=== PATIENT | male | born 1985 | race Caucasian/White ===

== ENCOUNTER 2020-01-13 04:58 | Emergency (ER) | payer SELFPAY ==
[2020-01-13] MEDS ORDERED: NORMAL SALINE 1000 ML 1,000 ML IV ONE ×2 (05:08→08:11)
[2020-01-13] MEDS ORDERED: LORAZEPAM INJ 2 MG/1 ML VIAL IV ONE (05:08)
--- NOTE | 2020-01-13 05:18 | ER Document Report ---
ED Medical Screen (RME) - General Stated Complaint: POSSIBLE OVERDOSE Time Seen by Provider: 01/13/20 05:03 Notes: 34-year-old male with chief complaint of using methamphetamine for the first time tonight and having adverse side effects. He states he feels like his heart is racing, he feels shaky, and feels like he cannot hold still, he feels like he "is going to explode". He states he had some old Xanax and took it without any relief. He denies alcohol, recreational drugs otherwise. He denies IV drug abuse although does state that over 5 years ago he has used IV drugs in the past. He denies fever, vomiting, difficulty breathing, chest pain. He den ies any daily medications that are prescribed. He denies any other complaints. - Related Data Allergies/Adverse Reactions: ampicillin Allergy (Verified 01/13/20 05:14) Iodinated Contrast Media Allergy (Verified 01/13/20 05:14) ketorolac [From Toradol] Allergy (Verified 01/13/20 05:14) Physical Exam - General General appearance: Other - Patient is very restless, has difficulty holding still, appears anxious and slightly flushed - Cardiovascular Rhythm: Regular, Tachycardia Heart sounds: Normal auscultation, S1 appreciated, S2 appreciated Course - Re-evaluation Re-evalutation: I have greeted and performed a rapid initial assessment of this patient. A comprehensive ED assessment and evaluation of the patient, analysis of test results and completion of the medical decision making process will be conducted by additional ED providers.
[2020-01-13 05:29] LABS: ABSOLUTE EOSINOPHILS # (AUTO) 0.2 10^3/uL (0.0-0.6); ABSOLUTE LYMPHOCYTES (AUTO) 2.1 10^3/uL (0.5-4.7); ABSOLUTE MONOCYTES (AUTO) 0.5 10^3/uL (0.1-1.4); ABSOLUTE NEUT (AUTO) 4.6 10^3/uL (1.7-8.2); BASOPHILS % (AUTO) 0.5 % (0-2); EOSINOPHILS % (AUTO) 2.3 % (0-6); HEMATOCRIT 43.9 % (37.9-51.0); HEMOGLOBIN 15.7 g/dL (13.5-17.0); LYMPHOCYTES % (AUTO) 27.9 % (13-45); MEAN CORPUSCULAR HEMOGLOBIN 31.8 pg (27.0-33.4); MEAN CORPUSCULAR HGB CONC 35.9 g/dL (32.0-36.0); MEAN CORPUSCULAR VOLUME 89 fl (80-97); MONOCYTES % (AUTO) 6.5 % (3-13); PLATELET COUNT 386 10^3/uL (150-450); RED BLOOD COUNT 4.95 10^6/uL (4.35-5.55); RED CELL DISTRIBUTION WIDTH 13.2 % (11.5-14.0); SEGMENTED NEUTROPHILS % (AUTO) 62.8 % (42-78); TOTAL CELLS COUNTED % (AUTO) 100 %; WHITE BLOOD COUNT 7.4 10^3/uL (4.0-10.5)
[2020-01-13 05:46] LABS: ALBUMIN 4.9 g/dL (3.5-5.0); ALKALINE PHOSPHATASE 92 U/L (38-126); ANION GAP 16 (5-19); ASPARTATE AMINO TRANSFERASE 62 U/L (17-59); BILIRUBIN,DIRECT 0.1 mg/dL (0.0-0.4); BILIRUBIN,TOTAL 1.2 mg/dL (0.2-1.3); BLOOD UREA NITROGEN 16 mg/dL (7-20); CALCIUM 9.6 mg/dL (8.4-10.2); CARBON DIOXIDE 18 mmol/L (22-30); CHLORIDE 102 mmol/L (98-107); GLUCOSE 138 mg/dL (75-110); POTASSIUM 3.7 mmol/L (3.6-5.0); TOTAL PROTEIN 7.9 g/dL (6.3-8.2)
[2020-01-13 05:47] LABS: ACETAMINOPHEN < 10 ug/mL (10-30); ALCOHOL < 10 mg/dL (NONE DETECTED); SALICYLATE < 1.0 mg/dL (2.0-20.0)
--- NOTE | 2020-01-13 08:02 | EKG REPORT ---
SEVERITY:- ABNORMAL ECG - SINUS TACHYCARDIA BORDERLINE IVCD WITH LAD PROLONGED QT INTERVAL : Confirmed by: Nany Urrutia 13-Jan-2020 08:01:55
--- NOTE | 2020-01-13 09:20 | RADIOLOGY REPORT (SQ) ---
EXAM DESCRIPTION: ACUTE ABDOMEN SERIES IMAGES COMPLETED DATE/TIME: 01/13/2020 9:01 am REASON FOR STUDY: altered mental status/drug overdose COMPARISON: None. NUMBER OF VIEWS: Three views. TECHNIQUE: Frontal chest, supine abdomen and upright/decubitus abdomen radiographic images acquired. LIMITATIONS: None. FINDINGS: CHEST: The cardiomediastinal silhouette and pulmonary vasculature are within normal limits . There is no consolidation, pleural effusion or pneumothorax. FREE AIR: None. BOWEL GAS PATTERN: No dilated loops of bowel or differential air-fluid levels. CALCIFICATIONS: None. HARDWARE: None in the abdomen. SOFT TISSUES: No abnormality. BONES: No acute fracture. OTHER: No other finding. IMPRESSION: 1. No acute cardiopulmonary process. 2. Nonobstructive bowel gas pattern. TECHNICAL DOCUMENTATION: JOB ID: [id number] 2010 [employer]- All Rights Reserved Reading location - IP/workstation name: [email or web address]
[2020-01-13 09:23] LABS: VENOUS BLOOD BASE EXCESS -2.3 mmol/L; VENOUS BLOOD HCO3 24.2 mmol/L (20-32); VENOUS BLOOD PCO2 47.8 mmHg (35-63); VENOUS BLOOD PH 7.32 (7.30-7.42)
--- NOTE | 2020-01-13 09:23 | RADIOLOGY REPORT (SQ) ---
EXAM DESCRIPTION: CT HEAD WITHOUT IMAGES COMPLETED DATE/TIME: 01/13/2020 9:08 am REASON FOR STUDY: ams/drug overdose COMPARISON: None. TECHNIQUE: Axial images acquired through the brain without intravenous contrast. Images reviewed wi th bone, brain and subdural windows. Additional sagittal and coronal reconstructions were generated. Images stored on PACS. All CT scanners at this facility use dose modulation, iterative reconstruction, and/or weight based d osing when appropriate to reduce radiation dose to as low as reasonably achievable (ALARA). [facility]: Dose Right [facility]: CareDose [facility]: Dose Right [facility]: Teradose 4D [facility]: YoQueVos RADIATION DOSE: CT Rad equipment meets quality standard of care and radiation dose reduction techniq ues were employed. CTDIvol: 53.2 mGy. DLP: 1044 mGy-cm. LIMITATIONS: None. FINDINGS: There is no acute intracranial hemorrhage, vascular territorial infarct, extra-axial fluid collection, mass effect or midline shift. The ng-white matter differentiation is preserved. Ther e are is no effacement of the cerebral sulci or basal subarachnoid cisterns. The caliber of the vent ricles is concordant with the degree of sulcation. The orbits and globes are intact. The paranasal sinuses and the mastoid air cells are clear. There is no fracture of the calvarium. IMPRESSION: No acute intracranial abnormality. EVIDENCE OF ACUTE STROKE: NO. COMMENT: Quality ID # [id number]: Final reports with documentation of one or more dose reduction techniques (e.g., Automated exposure control, adjustment of the mA and/or kV according to patient size, use of iterative reconstruction technique) TECHNICAL DOCUMENTATION: JOB ID: [id number] 2010 [email or web address]- All Rights Reserved Reading location - IP/workstation name: [email or web address]
--- NOTE | 2020-01-13 12:12 | ER Document Report ---
Entered by AMBROCIO ALLEN SCRIBE 01/13/20 0747 Acting as scribe for:TAMELA BARRIENTOS MD ED General - General Chief Complaint: Possible Overdose Stated Complaint: POSSIBLE OVERDOSE Time Seen by Provider: 01/13/20 05:03 Information source: Patient, [facility] Records Cannot obtain history due to: Altered mental status Notes: This 34 year old male patient presents to the emergency department today with a possible overdose. Patient's history was provided by [facility] records due to his altered mental status. Patient arrived to the ED x3 hours ago by a friend dropping him off. Prior to arrival the patient smoked methamphetamine and had adverse side effects. Patient then took xanax and snorted ketamine. When visited again, patient was alert and gave his history. Patient stated he used to do drugs but has been clean for x5 years. Patient states he recently broke up with his girlfriend and it has been hard on him. Patient states this is the first time he has done drugs since he has been clean, and did not mean to possibly overdose. - Related Data Allergies/Adverse Reactions: ampicillin Allergy (Verified 01/13/20 05:14) Iodinated Contrast Media Allergy (Verified 01/13/20 05:14) ketorolac [From Toradol] Allergy (Verified 01/13/20 05:14) Past Medical History - General Information source: Patient, [facility] Records Cannot obtain history due to: Altered mental status - Social History Smoking Status: Smoker,Current Status Unk Cigarette use (# per day): No Frequency of alcohol use: Occasional Drug Abuse: Marijuana, Methamphetamine, Prescription drugs Family History: Reviewed & Not Pertinent Patient has homicidal ideation: No Review of Systems - Review of Systems -: Yes ROS unobtainable due to patient's medical condition Physical Exam - Vital signs Vitals: Pulse Ox 100 01/13/20 04:59 - General General appearance: Appears well, Alert - HEENT Head: Normocephalic, Atraumatic Eyes: Normal Pupils: PERRL - Respiratory Respiratory status: No respiratory distress Chest status: Nontender Breath sounds: Normal Chest palpation: Normal - Cardiovascular Rhythm: Regular Heart sounds: Normal auscultation Murmur: No - Abdominal Inspection: Normal Distension: No distension Bowel sounds: Normal Tenderness: Nontender - Extremities General upper extremity: Normal inspection. No: Edema General lower extremity: Normal inspection. No: Edema - Neurological Neuro grossly intact: Yes Cognition: Normal Orientation: AAOx4 Speech: Normal - Psychological Associated symptoms: Normal affect, Normal mood - Skin Skin Temperature: Warm Skin Moisture: Dry Skin Color: Normal Course - Re-evaluation Re-evalutation: 01/13/20 12:04 Patient is awake alert not showing any signs of distress at this time. 01/13/20 12:08 Patient has been evaluated by the mental health team and patient does not need involuntary commitment patient is not suicidal homicidal. Patient had a unfortunate break-up with his girlfriend of several years and became depressed and decided to at the suggestion of her friends start doing drugs to try to lift him from his depression there was no intent of suicide or homicidal ideation. Patient is advised to follow-up if he needs further help to keep him from using further drugs. Patient has a history of substance abuse in the past. Patient reports he has been drug-free for many years until the break-up with his girlfriend. - Vital Signs Vital signs: Temp Pulse Resp BP Pulse Ox 98.2 F 95 22 H 160/101 H 96 01/13/20 05:17 01/13/20 05:16 01/13/20 10:01 01/13/20 10:46 01/13/20 11:00 - Laboratory Result Diagrams: 01/13/20 05:06 01/13/20 05:06 Laboratory results interpreted by me: 01/13/20 05:06 Sodium 135.8 L Carbon Dioxide 18 L Glucose 138 H AST 62 H ALT 85 H Salicylates < 1.0 L Acetaminophen < 10 L - Diagnostic Test Radiology reviewed: Image reviewed, Reports reviewed Radiology results interpreted by me: 01/13/20 12:05 Acute abdominal series including 1 view chest flat and upright abdomen shows no acute process CT scan of head no acute process no evidence of stroke. - EKG Interpretation by Me Additional EKG results interpreted by me: 01/13/20 12:06 Twelve-lead EKG shows sinus tachycardia rate of 101 with a borderline intraventricular conduction delay with left axis deviation prolonged QT interval. Otherwise no acute process. Discharge - Discharge Clinical Impression: Polysubstance dependence including opioid type drug, episodic abuse Condition: Stable Disposition: REHAB FACILITY Additional Instructions: You use polysubstances to lift yourself out of your depressed state in the past 24 hours. Inasmuch as that has been a problem with you in the past this was circumstantial and in the event of the break-up with your new girlfriend. We advised that you do follow-up with substance abuse counseling so that you can continue to maintain freedom from use of substances. If you find you need to come back to the emergency room for further evaluation please not hesitate to return to the emergency department. At this point time he not suicidal homic idal and have no intentions on continuing using substances. I personally performed the services described in the documentation, reviewed and edited the documentation which was dictated to the scribe in my presence, and it accurately records my words and actions.
[2020-01-13 12:26] VITALS: BP 114/85
== END 2020-01-13 12:35 | disposition home or self-care (01) ==
LOC: ER 04:58
DX: F11.10 Opioid abuse, uncomplicated (principal); F19.10 Other psychoactive substance abuse, uncomplicated; Z88.0 Allergy status to penicillin
CPT/HCPCS: 93005; 99285; 96361; 96374; 36415; 80307 ×3; 83605; 85025; 80053; 84484; 82803; 74022; 70450; 93010; J2060; J7030

== ENCOUNTER 2020-02-25 19:53 | Emergency (ER) | payer BC ==
[2020-02-25 20:28] LABS: ABSOLUTE BASOPHILS # (AUTO) 0.1 10^3/uL (0.0-0.2); ABSOLUTE EOSINOPHILS # (AUTO) 0.1 10^3/uL (0.0-0.6); ABSOLUTE LYMPHOCYTES (AUTO) 2.2 10^3/uL (0.5-4.7); ABSOLUTE MONOCYTES (AUTO) 0.6 10^3/uL (0.1-1.4); ABSOLUTE NEUT (AUTO) 8.6 10^3/uL (1.7-8.2); BASOPHILS % (AUTO) 0.5 % (0-2); EOSINOPHILS % (AUTO) 0.6 % (0-6); HEMATOCRIT 48.6 % (37.9-51.0); HEMOGLOBIN 16.9 g/dL (13.5-17.0); LYMPHOCYTES % (AUTO) 19.2 % (13-45); MEAN CORPUSCULAR HEMOGLOBIN 31.4 pg (27.0-33.4); MEAN CORPUSCULAR HGB CONC 34.7 g/dL (32.0-36.0); MEAN CORPUSCULAR VOLUME 91 fl (80-97); MONOCYTES % (AUTO) 5.1 % (3-13); PLATELET COUNT 426 10^3/uL (150-450); RED BLOOD COUNT 5.37 10^6/uL (4.35-5.55); RED CELL DISTRIBUTION WIDTH 13.9 % (11.5-14.0); SEGMENTED NEUTROPHILS % (AUTO) 74.6 % (42-78); TOTAL CELLS COUNTED % (AUTO) 100 %; WHITE BLOOD COUNT 11.6 10^3/uL (4.0-10.5)
[2020-02-25] MEDS ORDERED: NORMAL SALINE 1000 ML 1,000 ML IV ONE (20:30)
[2020-02-25 20:41] LABS: ALBUMIN 4.9 g/dL (3.5-5.0); ALKALINE PHOSPHATASE 106 U/L (38-126); ANION GAP 10 (5-19); ASPARTATE AMINO TRANSFERASE 36 U/L (17-59); BILIRUBIN,DIRECT 0.2 mg/dL (0.0-0.4); BILIRUBIN,TOTAL 1.3 mg/dL (0.2-1.3); BLOOD UREA NITROGEN 14 mg/dL (7-20); CALCIUM 9.8 mg/dL (8.4-10.2); CARBON DIOXIDE 25 mmol/L (22-30); CHLORIDE 103 mmol/L (98-107); CREATINE KINASE 280 U/L (55-170); GLUCOSE 121 mg/dL (75-110); POTASSIUM 3.8 mmol/L (3.6-5.0); TOTAL PROTEIN 8.1 g/dL (6.3-8.2)
--- NOTE | 2020-02-25 20:41 | ER Document Report ---
Entered by YORDAN HALLMAN SCRIBE 02/25/202025 Acting as scribe for:BREA BOYD DO ED General - General Chief Complaint: Palpitations Stated Complaint: HEART RACING,LEFT ARM NUMBNESS Time Seen by Provider: 02/25/20 20:12 Mode of Arrival: Wheelchair Information source: Patient Notes: This 34 year old male patient presents to the ED today with complaints of palp itations related to a panic attack that started x1 hour prior to arrival. Patient reports associated chest tightness, left arm numbness, blurry vision, dizziness, weakness, and headache. He states that he took 4 mg of Xanax when he felt the episode come on. He states that he has been smoking meth since Monday x2 days ago and also marijuana. 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 He also smokes cigarettes, but denies ETOH use. - Related Data Allergies/Adverse Reactions: ampicillin Allergy (Verified 01/13/20 05:14) Iodinated Contrast Media Allergy (Verified 01/13/20 05:14) ketorolac [From Toradol] Allergy (Verified 01/13/20 05:14) Past Medical History - Social History Smoking Status: Current Every Day Smoker Cigarette use (# per day): Yes Chew tobacco use (# tins/day): No Smoking Education Provided: No Frequency of alcohol use: Occasional Drug Abuse: Heroin, Marijuana, Methamphetamine Lives with: Family Family History: Reviewed & Not Pertinent Patient has suicidal ideation: No Patient has homicidal ideation: No Review of Systems - Review of Systems Constitutional: See HPI, Weakness EENT: See HPI, Blurred vision Cardiovascular: See HPI, Chest pain - tightness, Palpitations, Dizziness Respiratory: No symptoms reported Gastrointestinal: No symptoms reported Genitourinary: No symptoms reported Male Genitourinary: No symptoms reported Musculoskeletal: No symptoms reported Skin: No symptoms reported Hematologic/Lymphatic: No symptoms reported Neurological/Psychological: See HPI, Headaches, Numbness -: Yes All other systems reviewed and negative Physical Exam - Vital signs Vitals: Temp Pulse Resp BP Pulse Ox 98.6 F 142 H 20 123/83 95 02/25/20 20:03 02/25/20 20:03 02/25/20 20:03 02/25/20 20:03 02/25/20 20:03 Interpretation: Tachycardic - General General appearance: Alert In distress: None - HEENT Head: Normocephalic, Atraumatic Eyes: Normal Pupils: PERRL - Respiratory Respiratory status: No respiratory distress Chest status: Nontender Breath sounds: Normal Chest palpation: Normal - Cardiovascular Rhythm: Regular, Tachycardia Heart sounds: Normal auscultation Murmur: No Friction rub: No Gallop: None auscultated - Abdominal Inspection: Obese Distension: No distension Bowel sounds: Normal Tenderness: Nontender - Abdomen soft Organomegaly: No organomegaly - Back Back: Normal, Nontender - Extremities General upper extremity: Normal inspection General lower extremity: Normal inspection. No: Edema - Neurological Neuro grossly intact: Yes Orientation: AAOx4 Hilario Coma Scale Eye Opening: Spontaneous [place] Coma Scale Verbal: Oriented Hilario Coma Scale Motor: Obeys Commands Hilario Coma Scale Total: 15 - Psychological Associated symptoms: Normal affect, Normal mood - Skin Skin Temperature: Warm Skin Moisture: Dry Skin Color: Normal Course - Re-evaluation Re-evalutation: 02/25/20 22:49 MDM 34 year old male arrives with complaints of racing heart after being up for about 48 hours and doing a moderate amount of crystal meth. Took some xanax to try and "unwind" but does not feel too well and left arm was bothering him earlier. No chest pain or sob. Upon recheck about 2245 his heart rate is in 90's at time or low 100's and he has no SI or HI. He tells me he will refrain from drug use. We will reccomend follow up. - Vital Signs Vital signs: Temp Pulse Resp BP Pulse Ox 98.6 F 142 H 15 116/64 96 02/25/20 20:03 02/25/20 20:03 02/25/20 21:01 02/25/20 21:01 02/25/20 21:01 - Laboratory Result Diagrams: 02/25/20 20:10 02/25/20 20:10 Laboratory results interpreted by me: 02/25/20 02/25/20 20:10 20:10 WBC 11.6 H Absolute Neuts (auto) 8.6 H Glucose 121 H Creatine Kinase 280 H - Diagnostic Test Radiology reviewed: Image reviewed, Reports reviewed - EKG Interpretation by Me EKG shows normal: Sinus rhythm Rate: Tachycardia - Sinus Tachy left axis [address] elevation or depression my interpretation. Discharge - Discharge Clinical Impression: Tachycardia, Palpitations Condition: Stable Disposition: HOME, SELF-CARE Instructions: Palpitations (Irregular or Rapid Heartrate) ([facility]), Dizziness ([facility]), Drug Effects ([facility]), Family Physicians / Practices Additional Instructions: See a primary doctor in follow up. Rest. If you have thoughts of depression or anxiety or self harm return here or call 911. Return here also for chest pain, shortness of breath or other concerns. I personally performed the services described in the documentation, reviewed and edited the documentation which was dictated to the scribe in my presence, and it accurately records my words and actions.
[2020-02-25 20:52] LABS: CREATINE KINASE MB 3.11 ng/mL (<4.55)
[2020-02-25 20:53] LABS: TROPONIN I < 0.012 ng/mL
--- NOTE | 2020-02-25 20:58 | RADIOLOGY REPORT (SQ) ---
EXAM DESCRIPTION: [facility]: XR CHEST 1 VIEW CLINICAL HISTORY: 34 years Male; chest pain; COMPARISON: None. FINDINGS: Lungs: Lungs are clear, with no focal infiltrate, pneumothorax, or pleural effusion. Mediastinum: Mediastinum is within normal limits for this positioning. Bones: Bony structures are unremarkable. IMPRESSION: 1. No acute pulmonary findings.
[2020-02-25] MEDS ORDERED: LORAZEPAM INJ 2 MG/1 ML VIAL IV ONE (21:13)
[2020-02-25 21:24] LABS: URINE BARBITURATES SCREEN NEGATIVE; URINE METHADONE SCREEN NEGATIVE; URINE PHENCYCLIDINE SCREEN NEGATIVE
[2020-02-25 21:35] LABS: URINE BENZODIAZEPINES SCREEN UNCONFIRMED POSITIVE; URINE COCAINE SCREEN UNCONFIRMED POSITIVE; URINE MARIJUANA (THC) SCREEN UNCONFIRMED POSITIVE
[2020-02-26 00:08] VITALS: BP 117/68
--- NOTE | 2020-02-26 09:30 | EKG REPORT ---
SEVERITY:- ABNORMAL ECG - SINUS TACHYCARDIA LEFT ANTERIOR FASCICULAR BLOCK : Confirmed by: Nany Urrutia 26-Feb-2020 09:29:00
== END 2020-02-26 00:18 | disposition home or self-care (01) ==
LOC: ER 19:53
DX: R00.2 Palpitations (principal); R00.0 Tachycardia, unspecified; R20.0 Anesthesia of skin; R53.1 Weakness; F17.210 Nicotine dependence, cigarettes, uncomplicated
CPT/HCPCS: 93005; 99285; 96361; 96374; 36415; 82553; 82550; 85025; 80053; 84484; 80307; 71045; 93010; J2060; J7030